=== PATIENT | male | born 1980 | race Caucasian/White ===

== ENCOUNTER 2016-08-11 10:27 | Emergency (ER) | payer OTHER ==
[2016-08-11 10:43] VITALS: PULSE 62; RESP 20; TEMP 96.3
[2016-08-11] MEDS ORDERED: TDAP VACCINE 0.5 ML SUS IM ONE ×2 (11:12→11:13)
[2016-08-11 11:36] VITALS: BP 145/76; O2SAT 97
== END 2016-08-11 11:29 | disposition home or self-care (01) | DRG 605 ==
LOC: ED 10:27
DX: S01.01XA Laceration without foreign body of scalp, initial encounter (principal); W22.09XA Striking against other stationary object, initial encounter
CPT/HCPCS: 12002; 90471; 90715; 99283; G0168; A6402